=== PATIENT | male | born 1975 | race Caucasian/White ===

== ENCOUNTER → 2017-02-03 | Outpatient (CLI) | payer OTHER ==
[~2017-02-03] MED LIST: ACARBOSE25 MG PO; BISOPROLOL 5MG T5 MG PO; DUEXIS 26.6 MG-1 TAB PO; IMODIUM A-D2 M1 PO; LORTAB 500 MG-11 TAB PO; LYRICA75 MG PO; MOTRIN800 MG PO; NEXIUM40 MG PO; PERCOCET 325 MG1 TA4 PO; PROVIGIL100 MG PO; TOPAMAX25 MG PO
--- NOTE | 2017-02-04 09:30 | RADIOLOGY REPORT PS360 ---
MRI-L-SPINE W/O, MRI-3D RENDERING/MYELOGRAM HISTORY: Low back pain with right leg pain and numbness. Weakness in right leg BACK PAIN ORDERING PHYSICIAN: KIRSTEN KAM CRNA PATIENT AGE: 41 years COMPARISON: None TECHNIQUE: Standard multiplanar multiecho sequences are performed without contrast. 3-D MIP and myelographic images are also rendered and reviewed FINDINGS: There is normal alignment. The spinal cord ends at the L1-L2 level. T12-L1: Unremarkable. L1-L2: Mild facet and ligamentum flavum hypertrophy with mild bilateral lateral recess narrowing and mild disc desiccation anteriorly. L2-L3: Bulging disc along with facet and ligamentum flavum hypertrophy with canal stenosis. Canal measures 8 mm in AP dimension. Minimal central disc protrusion versus prominent posterior longitudinal ligament with moderate canal stenosis of 8 mm. There is severe bilateral lateral recess narrowing and moderate bilateral foraminal narrowing. There is a T1 and T2 hyperintense lesion involving the left aspect of the L2 vertebral body measuring 13 x 12 mm consistent with a lipoma or lipid rich hemangioma. There is mild kyphosis at the L2-L3 junction. L3-L4: Bulging disc with small central disc protrusion along with facet and ligamentum flavum hypertrophy with moderate canal stenosis both AP and transverse. There is severe bilateral lateral recess narrowing and moderate bilateral foraminal narrowing.. The central disc protrusion is very slightly eccentric toward the left. Small annular tear is present involving the posterior aspect of the disc L4-L5: Moderate bulging disc with small central disc protrusion and moderate to severe canal stenosis measuring approximately 8 mm. There is severe bilateral lateral recess narrowing and moderate bilateral foraminal narrowing. L5-S1: Bulging disc facet ligamentum flavum hypertrophy with severe canal stenosis of 8 mm along with severe bilateral lateral recess narrowing and moderate to severe bilateral foraminal narrowing. IMPRESSION: Abnormal MRI lumbar spine with lumbar spondylosis with multilevel canal stenosis and severe bilateral lateral recess and foraminal narrowing facet and ligamentum flavum hypertrophy. Scattered bulging disc and disc protrusions are present. Please see above for detailed description at each level.
== END ==
LOC: RAD 07:50
DX: M54.5 Low back pain (principal)